=== PATIENT | female | born 1950 | race Caucasian/White ===

== ENCOUNTER 2023-05-24 16:59 | Emergency (ER) | payer MEDICARE, OTHER ==
[~2023-05-24] VITALS: Ht 170.2 cm; Wt 74.8 kg
[2023-05-24 17:05] VITALS: BP 158/63; PULSE 100; RESP 22; TEMP 99; O2SAT 99
[2023-05-24 17:27] VITALS: O2SAT 98
[2023-05-24] MEDS: methylPREDNISolone SS 125 MG/2 ML VIAL IVP ONE (17:35)
[2023-05-24] MEDS: cefTRIAXone 1,000 MG in DEXT 5% MINI-BAG PLUS 50 ML IV ONE (17:35)
[2023-05-24] MEDS: ALBUTEROL SULFATE/IPRATROPIU 3 ML SOL IH ONE (17:38)
[2023-05-24] MEDS: ALBUTEROL 0.083% 2.5 MG/3 ML NEBU INH ONE (17:38)
[2023-05-24 17:39] VITALS: PULSE 94; RESP 24; O2SAT 95
[2023-05-24 18:06] LABS: BASOPHILS # (AUTO) 0.1 K/uL (0.00-0.22); BASOPHILS % (AUTO) 0.5 % (0.0-2.0); EOSINOPHILS % (AUTO) 0.4 % (0.0-4.0); HEMATOCRIT 44.5 % (36-48); LYMPHOCYTES # (AUTO) 1.3 K/uL (2.5-16.5); LYMPHOCYTES % (AUTO) 11.8 % (20.5-51.1); MEAN CORPUSCULAR HEMOGLOBIN 31 pg (27-31); MEAN CORPUSCULAR HGB CONC 34 g/dL (33-37); MEAN CORPUSCULAR VOLUME 92.1 fL (80-94); MONOCYTES # (AUTO) 1.5 K/uL (0.8-1.0); MONOCYTES % (AUTO) 13.1 % (1.7-9.3); NEUTROPHILS # (AUTO) 8.2 K/uL (1.8-7.7); NEUTROPHILS % (AUTO) 74.2 % (42.2-75.2); PLATELET COUNT (AUTO) 196 K/uL (140-450); RED BLOOD CELL COUNT(AUTO) 4.83 MIL/uL (4.20-5.40); WHITE BLOOD COUNT (AUTO) 11.1 K/uL (4.8-10.8)
[2023-05-24 18:14] LABS: ANION GAP 13.3 (8-16); CALCIUM 9.2 mg/dL (8.5-10.1); CREATININE 0.8 mg/dL (0.6-1.3); POTASSIUM 4.3 mmol/L (3.5-5.1)
[2023-05-24] MEDS ORDERED: cefTRIAXone 1,000 MG VIAL ONE (18:18)
[2023-05-24 18:23] LABS: LACTIC ACID 1.4 mmol/L (0.4-2.0)
[2023-05-24 20:42] LABS: FLU A ANTIGEN negative (NEGATIVE); FLU B ANTIGEN negative (NEGATIVE)
[2023-05-24] MEDS ORDERED: AZITHROMYCIN 500 MG INJ VIAL IV ONE (22:04)
[2023-05-24] MEDS: AZITHROMYCIN 500 MG in DEXTROSE 5% 250 ML IV ONE (22:15)
[2023-05-24 23:08] VITALS: BP 127/51; PULSE 90; RESP 31; TEMP 99; O2SAT 98
== END 2023-05-24 23:20 | disposition short-term general hospital (02) ==
LOC: MED 16:59
DX: J18.9 Pneumonia, unspecified organism (principal); Z20.822 Contact with and (suspected) exposure to COVID-19; R41.82 Altered mental status, unspecified; J45.909 Unspecified asthma, uncomplicated; Z79.899 Other long term (current) drug therapy; Z88.8 Allergy status to other drugs, medicaments and biological substances
CPT/HCPCS: 36415; 70450; 71045; 80048; 83605; 83880; 84484; 85025; 87040; 87426; 87804; 93005; 94640; 96365; 96367; 99285; J0456; J0696; J2930; J7613; Q0092

== ENCOUNTER 2024-04-01 15:21 | Emergency (ER) | payer MEDICARE ==
[~2024-04-01] VITALS: Ht 165.1 cm; Wt 86.2 kg
[2024-04-01 15:30] VITALS: BP 138/80; PULSE 84; RESP 20; TEMP 98.2; O2SAT 98
[2024-04-01 15:45] VITALS: O2SAT 94
[2024-04-01 16:05] LABS: BASOPHILS # (AUTO) 0.1 K/uL (0.00-0.22); BASOPHILS % (AUTO) 0.6 % (0.0-2.0); EOSINOPHILS # (AUTO) 0.8 K/uL (0-0.4); EOSINOPHILS % (AUTO) 5.9 % (0.0-4.0); HEMATOCRIT 46.8 % (36-48); HEMOGLOBIN 15.4 g/dL (12.0-16.0); LYMPHOCYTES # (AUTO) 2.9 K/uL (2.5-16.5); LYMPHOCYTES % (AUTO) 22.5 % (20.5-51.1); MEAN CORPUSCULAR HEMOGLOBIN 30 pg (27-31); MEAN CORPUSCULAR HGB CONC 33 g/dL (33-37); MEAN CORPUSCULAR VOLUME 92.3 fL (80-94); MONOCYTES # (AUTO) 1.1 K/uL (0.8-1.0); MONOCYTES % (AUTO) 8.2 % (1.7-9.3); NEUTROPHILS # (AUTO) 8.1 K/uL (1.8-7.7); NEUTROPHILS % (AUTO) 62.8 % (42.2-75.2); PLATELET COUNT (AUTO) 226 K/uL (140-450); RED BLOOD CELL COUNT(AUTO) 5.07 MIL/uL (4.20-5.40); RED CELL DISTRIBUTION WIDTH 14.8 % (11.6-13.7); WHITE BLOOD COUNT (AUTO) 12.9 K/uL (4.8-10.8)
[2024-04-01 16:19] LABS: ANION GAP 12.2 (8-16); CALCIUM 9.2 mg/dL (8.5-10.1); CARBON DIOXIDE 29.9 mmol/L (21-32); CHLORIDE 103 mmol/L (98-107); CREATININE 0.8 mg/dL (0.6-1.3); GLUCOSE 153 mg/dL (74-106); POTASSIUM 4.1 mmol/L (3.5-5.1); SODIUM SERUM 141 mmol/L (136-145); UREA NITROGEN, BLOOD 21 mg/dL (7-18)
[2024-04-01 17:24] VITALS: PULSE 73; RESP 14; O2SAT 97
[2024-04-01] MEDS: ALBUTEROL SULFATE/IPRATROPIU 3 ML SOL IH ONE ×2 (17:24→18:38)
[2024-04-01] MEDS ORDERED: PRED20TA5 PO (17:57)
[2024-04-01 18:39] VITALS: PULSE 76; RESP 20; O2SAT 93
[2024-04-01 18:44] VITALS: BP 123/57; PULSE 77; RESP 18; TEMP 98.7; O2SAT 98
== END 2024-04-01 18:51 | disposition home or self-care (01) ==
LOC: MED 15:21
DX: J44.1 Chronic obstructive pulmonary disease with (acute) exacerbation (principal); Z79.899 Other long term (current) drug therapy; Z88.8 Allergy status to other drugs, medicaments and biological substances
CPT/HCPCS: 36415; 71045; 80048; 83880; 84484; 85025; 93005; 94640; 99285; Q0092